=== PATIENT | male | born 1990 | race Caucasian/White ===

== ENCOUNTER 2017-09-07 09:03 | Emergency (ER) | payer BC ==
[2017-09-07] MEDS: predniSONE 20 MG TAB PO (09:43)
== END 2017-09-07 09:40 | disposition home or self-care (01) ==
LOC: FTE 09:03
DX: J06.9 Acute upper respiratory infection, unspecified (principal); J45.901 Unspecified asthma with (acute) exacerbation
CPT/HCPCS: 99284; J7512